=== PATIENT | male | born 1975 | race Caucasian/White ===

== ENCOUNTER 2019-03-03 18:18 | Emergency (ER) | payer OTHER ==
[~2019-03-03] VITALS: Ht 170.2 cm; Wt 68.0 kg
[2019-03-03] MEDS ORDERED: PLAVIX75 MG (18:35)
[2019-03-03] MEDS ORDERED: COUMADIN7.5 MG (18:35)
[2019-03-04] MEDS ORDERED: METRONIDAZOLE500 MG PO (08:34)
[2019-03-04] MEDS ORDERED: CIPRO500 MG PO (08:34)
[2019-03-04] MEDS ORDERED: PROTONIX40 MG PO (08:34)
== END 2019-03-04 09:02 | disposition home or self-care (01) ==
LOC: ER 18:18
DX: K57.92 Diverticulitis of intestine, part unspecified, without perforation or abscess without bleeding (principal)